=== PATIENT | male | born 1980 ===

== ENCOUNTER 2021-06-05 17:06 | Outpatient (CLI) | payer BC ==
[2021-06-06 18:06] LABS: SARS-CoV-2 PCR by NAA Not Detected (NotDetected)
== END 2021-06-05 17:07 | disposition home or self-care (01) ==
LOC: LABBT 17:06
PROVIDERS: ATTEND Otolaryngology Plastic Surgery within the Head & Neck
DX: Z01.818 Encounter for other preprocedural examination (principal); J34.2 Deviated nasal septum; J32.9 Chronic sinusitis, unspecified; J30.9 Allergic rhinitis, unspecified; J34.3 Hypertrophy of nasal turbinates; J33.9 Nasal polyp, unspecified; J35.03 Chronic tonsillitis and adenoiditis; R06.83 Snoring; K13.79 Other lesions of oral mucosa; R06.81 Apnea, not elsewhere classified; R06.5 Mouth breathing; Z20.822 Contact with and (suspected) exposure to COVID-19
CPT/HCPCS: 93005; 93010; U0003; U0005

== ENCOUNTER 2021-06-07 08:06 | Day surgery (SDC) | payer BC ==
[2021-05-31 13:36] VITALS: BMI 33.9
[2021-06-07] MEDS ORDERED: AFRIN NASAL MIST 15 ML BOT ONE (08:39)
[2021-06-07] MEDS ORDERED: Midazolam HCl 2 mg/2 ml Vial ONE (09:46)
[2021-06-07] MEDS ORDERED: Xylocaine 1% w/ Epi 1:100K 10 ML VIAL ONE ×2 (10:09→10:10)
[2021-06-07] MEDS ORDERED: Oxymetazoline HCl 0.05% (30 ML BOT) ONE (10:10)
[2021-06-07] MEDS ORDERED: Bacitracin Zinc Ointment 30 gm TUBE ONE (10:10)
[2021-06-07] MEDS ORDERED: Fentanyl 100 MCG/2 ML VIAL ONE ×2 (10:21→11:55)
[2021-06-07] MEDS ORDERED: ePHEDrine 50 MG/ML VIAL ONE (10:45)
[2021-06-07] MEDS ORDERED: PROPOFOL 200 MG/20 ML VIAL ONE (10:45)
[2021-06-07] MEDS ORDERED: Dexamethasone 20 MG/5 ML VIAL ONE (10:45)
[2021-06-07] MEDS ORDERED: Ondansetron PF 4 MG/2 ML Vial ONE (10:45)
[2021-06-07] MEDS ORDERED: Lidocaine 1% PF 5 ML VIAL ONE (10:45)
[2021-06-07] MEDS ORDERED: Rocuronium Bromide 10 MG/ML (10ML VIAL) ONE (10:45)
[2021-06-07] MEDS ORDERED: Glycopyrrolate 0.2 MG/ML 5 ML SYRINGE ONE (10:45)
[2021-06-07] MEDS ORDERED: Labetalol HCl 100 MG/20 ML VIAL ONE (11:44)
[2021-06-07] MEDS ORDERED: HYDROcodone/Acetaminophen 5/325 mg Tablet ONE (12:49)
== END 2021-06-07 13:25 | disposition home or self-care (01) ==
LOC: SDC 08:06
PROVIDERS: ATTEND Otolaryngology Plastic Surgery within the Head & Neck
PROC: 09CW8ZZ Extirpation of Matter from Right Sphenoid Sinus, Via Natural or Artificial Opening Endoscopic (ICD-10-PCS; principal; 2021-06-07)
PROC: 099Q8ZZ Drainage of Right Maxillary Sinus, Via Natural or Artificial Opening Endoscopic (ICD-10-PCS; principal; 2021-06-07)
PROC: 09DV4ZZ Extraction of Left Ethmoid Sinus, Percutaneous Endoscopic Approach (ICD-10-PCS; principal; 2021-06-07)
PROC: 09CX8ZZ Extirpation of Matter from Left Sphenoid Sinus, Via Natural or Artificial Opening Endoscopic (ICD-10-PCS; principal; 2021-06-07)
PROC: 099R8ZZ Drainage of Left Maxillary Sinus, Via Natural or Artificial Opening Endoscopic (ICD-10-PCS; principal; 2021-06-07)
PROC: 09BT8ZZ Excision of Left Frontal Sinus, Via Natural or Artificial Opening Endoscopic (ICD-10-PCS; principal; 2021-06-07)
PROC: 09BL8ZZ Excision of Nasal Turbinate, Via Natural or Artificial Opening Endoscopic (ICD-10-PCS; principal; 2021-06-07)
PROC: 8E09XBZ Computer Assisted Procedure of Head and Neck Region (ICD-10-PCS; principal; 2021-06-07)
PROC: 09BS8ZZ Excision of Right Frontal Sinus, Via Natural or Artificial Opening Endoscopic (ICD-10-PCS; principal; 2021-06-07)
PROC: 09DU4ZZ Extraction of Right Ethmoid Sinus, Percutaneous Endoscopic Approach (ICD-10-PCS; principal; 2021-06-07)
PROC: 09SM4ZZ Reposition Nasal Septum, Percutaneous Endoscopic Approach (ICD-10-PCS; principal; 2021-06-07)
DX: J32.9 Chronic sinusitis, unspecified (principal); J34.2 Deviated nasal septum; J34.3 Hypertrophy of nasal turbinates; J33.0 Polyp of nasal cavity; J34.89 Other specified disorders of nose and nasal sinuses; J35.01 Chronic tonsillitis; K13.79 Other lesions of oral mucosa; I10 Essential (primary) hypertension; E66.9 Obesity, unspecified; Z68.33 Body mass index [BMI] 33.0-33.9, adult; Z79.899 Other long term (current) drug therapy; Z91.013 Allergy to seafood
CPT/HCPCS: 88304; J1100; J2250; J2405; J2704; J3010; J3490